=== PATIENT | male | born 1985 | race Caucasian/White ===

== ENCOUNTER 2016-09-13 16:40 | Emergency (ER) | payer SELFPAY ==
[~2016-09-13] VITALS: Ht 180.3 cm; Wt 118.3 kg
[2016-09-13] MEDS ORDERED: LORazepam 2 MG/ML, 1ML IVPush ONE (17:00)
[2016-09-13] MEDS ORDERED: SODIUM CHLORIDE 0.9% 1,000ML IVBOLUS ONE (17:00)
[2016-09-13] MEDS ORDERED: SODIUM CHLORIDE FLUSH 10ML SYR IVF ONE (17:00)
[2016-09-13] MEDS ORDERED: ASPIRIN 81 MG TABLET CHEW PO ONE (17:00)
[2016-09-13 17:33] LABS: HEMOGLOBIN 17.4 g/dL (13.7-18.0)
[2016-09-13 17:43] LABS: BLOOD UREA NITROGEN 15 mg/dL (7-18)
[2016-09-13 17:47] LABS: IS PT STATUS REG ER OR PRE ER? YES
[2016-09-13] MEDS ORDERED: BUTA1CAP58 PO (17:51)
[2016-09-13] MEDS ORDERED: nyquil PO (17:51)
[2016-09-13] MEDS ORDERED: embril (17:51)
[2016-09-13] MEDS ORDERED: D-ME236L5 PO (17:51)
[2016-09-13] MEDS ORDERED: PSEU120T60 PO (17:51)
[2016-09-13] MEDS ORDERED: ASPIRIN 81 MG TABLET CHEW ONE (18:01)
[2016-09-13 18:08] VITALS: BP 136/86
== END 2016-09-13 18:41 | disposition home or self-care (01) ==
LOC: ED 18:32
DX: J20.9 Acute bronchitis, unspecified (principal)
CPT/HCPCS: 36415; 71010; 80048; 82040; 83880; 84484; 85025; 85379; 93005